=== PATIENT | male | born 1955 | race Caucasian/White ===

== ENCOUNTER 2019-05-17 15:44 | Emergency (ER) | payer SELFPAY ==
[~2019-05-17] VITALS: Ht 180.3 cm; Wt 105.2 kg
[2019-05-17 16:18] VITALS: BP 155/93
[2019-05-17] MEDS ORDERED: ACETAMINOPHEN 325 MG TABLET PO ONE (16:30)
[2019-05-17] MEDS ORDERED: ACETAMINOPHEN ES 500 MG TABLET ONE (16:50)
--- NOTE | 2019-05-17 16:52 | NUR ---
MAP MOUNTER AT BEDSIDE
== END 2019-05-17 17:51 | disposition home or self-care (01) ==
LOC: ER 15:48
DX: M25.512 Pain in left shoulder (principal); I10 Essential (primary) hypertension; E78.5 Hyperlipidemia, unspecified; W01.0XXA Fall on same level from slipping, tripping and stumbling without subsequent striking against object, initial encounter; Y93.89 Activity, other specified; Y92.89 Other specified places as the place of occurrence of the external cause; Y99.8 Other external cause status
CPT/HCPCS: 73030-TC

== ENCOUNTER 2024-01-07 09:23 | Emergency (ER) | payer MEDICARE, OTHER ==
[~2024-01-07] VITALS: Ht 180.3 cm; Wt 104.3 kg
[2024-01-07] MEDS ORDERED: LIDOCAINE 1% INJ 50 ML MDV IJ ONE (09:34)
[2024-01-07] MEDS ORDERED: TDAP [DIPH/PERTUSSIS/TET] 0.5 ML VIAL IM ONE (09:35)
[2024-01-07] MEDS: TDAP [DIPH/PERTUSSIS/TET] 0.5 ML VIAL IM ONE (09:38)
[2024-01-07 10:29] VITALS: BP 137/62; TEMP 98.4; O2SAT 99
== END 2024-01-07 10:29 | disposition home or self-care (01) ==
LOC: ER 09:41
DX: S61.411A Laceration without foreign body of right hand, initial encounter (principal); I10 Essential (primary) hypertension; E78.00 Pure hypercholesterolemia, unspecified; W26.8XXA Contact with other sharp object(s), not elsewhere classified, initial encounter; Y93.89 Activity, other specified; Y92.89 Other specified places as the place of occurrence of the external cause; Y99.8 Other external cause status
CPT/HCPCS: 12002; 73130; 90471; 90715; 99283; J3490; A6403

== ENCOUNTER 2024-01-09 16:57 | Emergency (ER) | payer MEDICARE, OTHER ==
[~2024-01-09] VITALS: Ht 180.3 cm; Wt 104.3 kg
[2024-01-09 17:32] VITALS: BP 140/75; TEMP 98; O2SAT 100
== END 2024-01-09 18:41 | disposition home or self-care (01) ==
LOC: ER 17:01
DX: S61.411D Laceration without foreign body of right hand, subsequent encounter (principal); I10 Essential (primary) hypertension; E78.00 Pure hypercholesterolemia, unspecified; X58.XXXD Exposure to other specified factors, subsequent encounter

== ENCOUNTER 2024-01-21 11:01 | Emergency (ER) | payer MEDICARE, OTHER ==
[~2024-01-21] VITALS: Ht 180.3 cm; Wt 104.3 kg
[2024-01-21 11:25] VITALS: BP 135/67; TEMP 98.4; O2SAT 98
== END 2024-01-21 11:40 | disposition home or self-care (01) ==
LOC: ER 11:19
DX: S61.411D Laceration without foreign body of right hand, subsequent encounter (principal); I10 Essential (primary) hypertension; Z86.79 Personal history of other diseases of the circulatory system; Z48.02 Encounter for removal of sutures; X58.XXXD Exposure to other specified factors, subsequent encounter